=== PATIENT | female | born 1985 ===

== ENCOUNTER 2018-06-18 00:45 | Emergency (ER) | payer SELFPAY ==
[2018-06-18 00:58] VITALS: BMI 23.4
--- NOTE | 2018-06-18 01:22 | ED PDOC ---
Arrival/HPI - General Chief Complaint: Abdominal Pain Time Seen by Provider: 06/18/18 01:02 Historian: Patient - History of Present Illness Narrative History of Present Illness (Text): 06/18/18 01:17 aMrtha Pichardo is a 33 year old female, P:3 A:0, currently 2 months , who presents to the ED complaining of abdominal pain. Patient states, via spouse acting as tongue binder, she has been experiencing LLQ abdominal pain with associated dysuria today. states patient recently took a home test last week, which was positive, and is scheduled for an appointment with her OBGYN on 07/03/2018. Patient denies any vaginal bleeding, nausea, vomiting, diarrhea, fever, chills, dizziness, or any other complaints. Symptom Onset: Gradual Symptom Course: Unchanged Activities at Onset: Light Context: Home Past Medical History - Provider Review Nursing Documentation Reviewed: Yes - Psychiatric Hx Substance Use: No Family/Social History - Physician Review Nursing Documentation Reviewed: Yes Family/Social History: Unknown Family HX Smoking Status: Current Some Days Smoker Hx Alcohol Use: No Hx Substance Use: No Allergies/Home Meds Allergies/Adverse Reactions: Allergies No Known Allergies Allergy (Verified 06/18/18 00:58) Review of Systems - Physician Review All systems were reviewed & negative as marked: Yes - Review of Systems Constitutional: Normal. absent: Fevers Eyes: Normal ENT: Normal Respiratory: Normal. absent: SOB, Cough Cardiovascular: Normal. absent: Chest Pain Gastrointestinal: Abdominal Pain. absent: Diarrhea, Vomiting Genitourinary Female: Dysuria. absent: Vaginal Bleeding Musculoskeletal: Normal. absent: Back Pain, Neck Pain Skin: Normal. absent: Rash Neurological: Normal. absent: Headache, Dizziness Endocrine: Normal Hemo/Lymphatic: Normal Psychiatric: Normal Physical Exam Vital Signs Reviewed: Yes Vital Signs Temp Pulse Resp BP Pulse Ox 06/18/18 00:58 98.5 F 68 19 110/71 97 Temperature: Afebrile Blood Pressure: Normal Pulse: Regular Respiratory Rate: Normal Appearance: Positive for: Well-Appearing, Non-Toxic, Comfortable Pain Distress: None Mental Status: Positive for: Alert and Oriented X 3 - Systems Exam Head: Present: Atraumatic, Normocephalic Pupils: Present: PERRL Extroacular Muscles: Present: EOMI Conjunctiva: Present: Normal Mouth: Present: Moist Mucous Membranes Neck: Present: Normal Range of Motion Respiratory/Chest: Present: Clear to Auscultation, Good Air Exchange. No: Respiratory Distress, Accessory Muscle Use Cardiovascular: Present: Regular Rate and Rhythm, Normal S1, S2. No: Murmurs Abdomen: Present: Tenderness (LLQ tenderness). No: Distention, Peritoneal Signs Back: Present: Normal Inspection Upper Extremity: Present: Normal Inspection. No: Cyanosis, Edema Lower Extremity: Present: Normal Inspection. No: Edema Neurological: Present: GCS=15, CN II-XII Intact, Speech Normal Skin: Present: Warm, Dry, Normal Color. No: Rashes Psychiatric: Present: Alert, Oriented x 3, Normal Insight, Normal Concentration Medical Decision Making ED Course and Treatment: 06/18/18 01:17 Impression: 33 year old female complaining of LLQ pain and dysuria. Plan: -- Transvaginal US -- Labs, blood type and screen, Beta-HCG -- Urinalysis -- Reassess and disposition Prior Visits: Notes and results from previous visits were reviewed. Progress Notes: 06/18/18 04:50 Transvaginal US: The uterus measures 12.6x7.2x8.5 cm. Normal cervical length 4.4 cm. Single, live intrauterine gestation sac. Estimated gestational age 8 weeks and 5 days. heart rate 178 beats per minute. Normal ovaries. Impression: Single, live intrauterine gestation. - RAD Interpretation Dough Molder Hand: Radiologist - Scribe Statement The provider has reviewed the documentation as recorded by the Urvashiiblarry Blandon Provider Scribe Attestation: All medical record entries made by the Scribe were at my direction and personally dictated by me. I have reviewed the chart and agree that the record accurately reflects my personal performance of the history, physical exam, medical decision making, and the department course for this patient. I have also personally directed, reviewed, and agree with the discharge instructions and disposition. Disposition/Present on Arrival - Present on Arrival Any Indicators Present on Arrival: No History of DVT/PE: No History of Uncontrolled Diabetes: No Urinary Catheter: No History of Decub. Ulcer: No History Surgical Site Infection Following: None - Disposition Have Diagnosis and Disposition been Completed?: Yes Diagnosis: , Urinary tract infection Disposition: HOME/ ROUTINE Disposition Time: 05:00 Condition: GOOD Discharge Instructions (ExitCare): Urinary Tract Infections in Adults, Care, - The Third Month Print Language: BANGLADESHI Prescriptions: Cephalexin [cephalexin] 500 mg PO BID #14 cap [facility] - Follow up with primary Forms: [employer] (Vietnamese)
[2018-06-18 01:51] LABS: PH,URINE 6.5 (4.7-8.0); URINE BILIRUBIN NEGATIVE (NEGATIVE); URINE BLOOD NEGATIVE (NEGATIVE); URINE GLUCOSE (UA) NEGATIVE (NEGATIVE); URINE LEUKOCYTE ESTERASE LARGE Leu/uL (NEGATIVE); URINE PROTEIN NEGATIVE mg/dL (<30 mg/dL); URINE UROBILINOGEN 0.2 E.U./dL (<1 E.U./dL)
[2018-06-18 01:52] LABS: BASO # 0.03 K/mm3 (0.0-2.0); BASO % 0.4 % (0.0-3.0); EOS # 0.3 (0.0-0.7); HEMOGLOBIN 11.7 g/dL (12.0-16.0); LYMPH # 2.2 (1.2-3.4); LYMPH % 30.5 % (22.0-35.0); MEAN CELL VOLUME 96.7 fl (80.0-105.0); MEAN CORPUSCULAR HEMOGLOBIN 32.5 pg (25.0-35.0); MEAN CORPUSCULAR HGB CONC 33.6 g/dl (31.0-37.0); MONO # 0.7 (0.1-0.6); MONO % 9.1 % (1.0-6.0); RBC 3.6 10^6/uL (3.5-6.1); RED CELL DISTRIBUTION WIDTH 12.7 % (11.5-14.5); WHITE BLOOD COUNT 7.2 10^3/uL (4.5-11.0)
[2018-06-18 01:55] LABS: URINE APPEARANCE SL CLOUDY (CLEAR); URINE COLOR YELLOW (YELLOW)
[2018-06-18 02:00] LABS: ALB/GLOB RATIO 1.3 (1.1-1.8); ALBUMIN 3.8 g/dL (3.0-4.8); ALT/SGPT 13 U/L (7-56); AST/SGOT 18 U/L (14-36); BLOOD UREA NITROGEN 9 mg/dL (7-21); CALCIUM 9.2 mg/dL (8.4-10.5); GFR NON-AFRICAN AMERICAN > 60; INR 1.12; PARTIAL THROMBOPLASTIN TIME 29.3 Seconds (26.9-38.3); PROTHROMBIN TIME 12.4 SECONDS (9.4-12.5)
[2018-06-18 02:06] LABS: URINE BACTERIA MOD /hpf; URINE RBC 0 - 2 /hpf (0-2)
[2018-06-18 04:54] VITALS: BP 112/61; PULSE 82; RESP 18; TEMP 98.1; O2SAT 98
--- NOTE | 2018-06-18 10:41 | US ---
Date of service: 06/18/2018 PROCEDURE: First trimester ultrasound HISTORY: Left lower quadrant pain. COMPARISON: None TECHNIQUE: Standard protocol for this study/examination. FINDINGS: LMP: 04/06/2018. Prior examinations from the current : None. TECHNIQUE: Real-time 2D imaging, duplex and color Doppler. FINDINGS: Cardiac activity: Present Rate: 179 BPM Measurements: [place] rump length: 2.12 cm Gestational age based on CRL 8 weeks 5 days Gestational age 8 weeks 6 days based on gestational sac measurement 3.66 cm Gestational age derived from LMP: 8 weeks 6 days. TE based on LMP: 01/11/2019. TE based on biometry: 01/22/2019. Gestational concordance documented Yolk sac identified Cervix: No Cervical abnormalities: Negative examination for cervical dilatation or effacement. Closed cervix measuring 4.4 cm Subchorionic hemorrhage: None UTERUS: 7.2 x 8.5 x 12.6 cm. ADNEXA: Right: 2.3 x 3.2 x 3.3 cm. Normal Doppler arterial waveform documented. Left: 2.6 x 3.2 x 3.7 cm. Normal Doppler arterial waveform documented Fluid in the cul-de-sac: None IMPRESSION: Eight weeks 6 days live intrauterine gestation. Gestational concordance documented. Concordant findings (preliminary report) provided by [facility].
== END 2018-06-18 04:55 | disposition home or self-care (01) ==
LOC: ED 00:45
DX: O23.41 Unspecified infection of urinary tract in pregnancy, first trimester (principal); Z3A.08 8 weeks gestation of pregnancy